=== PATIENT | male | born 1960 | race Caucasian/White ===

== ENCOUNTER 2019-08-26 08:13 | Emergency (ER) | payer OTHER ==
[~2019-08-26] VITALS: Ht 180.3 cm; Wt 74.8 kg
[2019-08-26 08:13] VITALS: BP 162/105
[2019-08-26] MEDS ORDERED: NAPROXEN 500 MG TABLET PO ONE (08:30)
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
[2019-08-26] MEDS ORDERED: MELO7.5T29 PO (09:03)
[2019-08-26] MEDS ORDERED: ORPH-16 PO (09:03)
== END 2019-08-26 09:10 | disposition home or self-care (01) ==
LOC: ER 08:13
DX: S80.01XA Contusion of right knee, initial encounter (principal); F17.210 Nicotine dependence, cigarettes, uncomplicated; V57.5XXA Driver of pick-up truck or van injured in collision with fixed or stationary object in traffic accident, initial encounter; Y93.I9 Activity, other involving external motion; Y92.488 Other paved roadways as the place of occurrence of the external cause; Y99.8 Other external cause status
CPT/HCPCS: 73562; 99284